=== PATIENT | male | born 1975 | race African-American/Black ===

== ENCOUNTER 2020-03-10 21:03 | Emergency (ER) | payer OTHER ==
[~2020-03-10] VITALS: Ht 180.3 cm; Wt 149.7 kg
[2020-03-10 21:10] VITALS: BP 137/85
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
--- NOTE | 2020-03-10 21:50 | NUR ---
ED Nurse Note: Pt taken to CT.
--- NOTE | 2020-03-10 22:02 | NUR ---
ED Nurse Note: Pt returned from CT.
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
--- NOTE | 2020-03-10 22:31 | NUR ---
ED Nurse Note: Xray at bedside.
[2020-03-10] MEDS ORDERED: ROBAXIN-750750 MG PO (22:35)
[2020-03-10] MEDS ORDERED: IBUPROFEN400 M1 PO (22:35)
--- NOTE | 2020-03-10 23:00 | Diagnostic Imaging Report ---
EXAM: XR Left Hand Complete, 3 or More Views CLINICAL HISTORY: PAIN TECHNIQUE: Frontal, lateral and oblique views of the left hand. COMPARISON: No relevant prior studies available. FINDINGS: Bones/joints: There is widening of the scapholunate interval which is compatible with scapholunate ligament disruption. There appears to be some proximal migration of the capitate which may indicate a SLAC wrist. Mild degenerative changes at the first carpometacarpal articulation Well- corticated ossicle adjacent to the distal radius likely represents sequela of a remote ulnar styloid fracture. No dislocation. Soft tissues: Unremarkable. No radiopaque foreign body. IMPRESSION: No acute fracture or osseous malalignment. Widening of the scapholunate interval likely indicates scapholunate ligament disruption. There does appear to be some proximal migration of the capitate which may indicate a SLAC wrist. Remote ulnar styloid fracture.
[2020-03-10 23:05] VITALS: BP 131/81
--- NOTE | 2020-03-10 23:05 | NUR ---
ER DISCHARGE NOTE: Patient is cleared to be discharged per ERMD, pt is aox4, on room air, with stable vital signs. pt was given dc and prescription instructions, pt was able to verbalize understanding, pt id band removed without complications. pt is able to ambulate with steady gait. pt took all belongings. placed wrist brace on left wrist.
== END 2020-03-10 23:05 | disposition home or self-care (01) ==
LOC: EMR 21:44
DX: S16.1XXA Strain of muscle, fascia and tendon at neck level, initial encounter (principal); S39.012A Strain of muscle, fascia and tendon of lower back, initial encounter; S63.502A Unspecified sprain of left wrist, initial encounter; V43.52XA Car driver injured in collision with other type car in traffic accident, initial encounter; Y92.410 Unspecified street and highway as the place of occurrence of the external cause
CPT/HCPCS: 72125; 72128; 74176; 99284